=== PATIENT | male | born 1940 | race Caucasian/White ===

== ENCOUNTER 2017-07-25 02:23 | Day surgery (SDC) | payer MEDICARE ==
[~2017-07-25] VITALS: Ht 172.7 cm; Wt 77.3 kg
[~2017-07-25 02:23] MED LIST: Omeprazole20 M1 PO; TAMS.4ER PO
== END 2017-07-25 11:35 | disposition home or self-care (01) ==
LOC: MHTC 02:23
PROC: B2111ZZ Fluoroscopy of Multiple Coronary Arteries using Low Osmolar Contrast (ICD-10-PCS; principal; 2017-07-25)
DX: I35.0 Nonrheumatic aortic (valve) stenosis (principal); I25.10 Atherosclerotic heart disease of native coronary artery without angina pectoris; K21.9 Gastro-esophageal reflux disease without esophagitis; M17.9 Osteoarthritis of knee, unspecified; N40.0 Benign prostatic hyperplasia without lower urinary tract symptoms; Z88.8 Allergy status to other drugs, medicaments and biological substances; Z87.891 Personal history of nicotine dependence; Z79.899 Other long term (current) drug therapy
CPT/HCPCS: 93454; 99152; 99153; C1769; C1894; J1200; J1644; J1720; J2250; J3010; J7030; Q9967

== ENCOUNTER 2021-10-12 06:41 | Day surgery (SDC) | payer MEDICARE ==
[~2021-10-12] VITALS: Ht 170.2 cm; Wt 80.3 kg
[~2021-10-12 06:41] MED LIST changes: +ASCO500 PO; +ASPI81CH PO; +ATOR80 PO; +GLUCHON PO; +Lopressor 25 mg25 MG PO
--- NOTE | 2021-10-12 07:48 | NUR ---
PT STATES HE WAS NOT INFORMED TO DO 5 DAYS OF CHLORHEXIDINE SBOWERS OR MUPRIOCIN TO [facility]. DR. DELA CRUZ INFORMED.
--- NOTE | 2021-10-12 07:48 | NUR ---
PT ADMITTED TO [facility]. AGREES WITH PLANNED SURGERY. LUNG SOUNDS WITH RHONCHI. DR. BHAKTA INFOMRED. ORDERS GIVEN.
--- NOTE | 2021-10-12 11:39 | NUR ---
PT NOT MOVING FEET AT THIS TIME EARLIER I THOUGHT I HAD SEEN RIGHT FOOT MOVE BUT AT THIS TIME IT IS NOT
--- NOTE | 2021-10-12 12:15 | NUR ---
PT ARRIVED TO THE ROOM AT 1203. PT IS ALERT ORIENTED AND PLEASANT. PT DENIES PAIN. PT HAD SPINAL ANESTHESIA, CURRENTLY NO FEELING OR MOVEMENT TO BLE. PT DENIES NAUSEA. WILL CONTINUE TO MONITOR.
--- NOTE | 2021-10-12 12:57 | NUR ---
PT ARRIVED ON SURG FLOOR AT 1205 FOR L TOTAL KNEE ARTHROPLASTY. PT IS A&OX4. PT IS STILL FEELING AFFECTS OF SPINAL ANESTHESIA AND IS UNABLE TO WIGGLE TOES OR FEEL SENSATION ON FEET. PEDAL PULSES FELT WITH PALPATION. EXTREMITES WARM. L KNEE SURGIAL SITE SHOWS NO SWELLING OR REDNESS. NO SHADOWING PRESENT ON DRESSING. AQUECELL DRESSING WITH WILFREDO WRAP. POLAR PACK IN PLACE ON L KNEE. CALL PT EDUCATED ON THE USE OF INCENTIVE SPIROMETER AND CALL LIGHT. WILL CONTINUE TO MONITOR.
--- NOTE | 2021-10-12 14:39 | NUR ---
DURING PT ROUNDING, PT IS ABLE TO WIGGLE FEET. STILL UNABLE TO FEEL SENSATION IN FEET BUT HAS GAINED SENSATION AT KNEES AND UP.
--- NOTE | 2021-10-12 17:19 | NUR ---
SHIFT SUMMARY PT IS A&OX4. PT IS POD#0 FOR L TOTAL KNEE ARTHROPLASTY. PT HAD SPINAL ANESTHESIA AND REGAINED SENSATION IN FEET AT ABOUT 1630. PT HAS POLAR PACK IN PLACE. AQUACELL DRESSING IN PLACE WITH NO SHADOWING NOTED. PT HAS NOT YET VOIDED OF THIS REPORT BUT ENCOURAGED TO USE URINAL AND CALL LIGHT IF HE VOIDS. PT STATED HE FELT "WOOZY" DURING THE AFTERNOON BUT WHEN I ROUNDED ON HIM AT 1730 HE STATED HE FELT MUCH BETTER. PT TOLERATED REGULAR DIET WELL.
--- NOTE | 2021-10-12 19:44 | NUR ---
SHIFT SUMMARY PT IS POD#0 FROM L TKA WITH DR. DELA CRUZ. PT HAD SPINAL ANESTHESIA, HIS BLE REMAINED NUMB/WEAK UNTIL APPROXIMATELY 1630. PT ATTEMPTED TO WORK WITH THERAPY BUT WAS A MODERATE ASSIST TO STAND. PT DENIES PAIN. TOLERATING PO BUT REPORTS MILD NAUSEA. PT HAS BEEN UNABLE TO VOID SINCE SURGERY, BLADDER SCAN SHOWED 174ML THIS EVENING, WILL CONTINUE TO MONITOR. REPORT GIVEN TO TOPHER ROWE.
--- NOTE | 2021-10-13 04:18 | NUR ---
SHIFT SUMMARY POD 1 L TKA. WILFREDO WRAP REMAINS CDI WITH POLAR PACK IN PLACE. PT CONT TO DENY PAIN, BUT STILL TAKING TYLENOL + TORADOL SCHEDULED. 1 ASSIST WITH GB + FWW. PT ANTICIPATING TO GO HOME TODAY AFTER THERAPY. USES CALL LIGHT APPROPRIATELY.
[2021-10-13 05:32] LABS: BASOPHILS ABSOLUTE AUTO 0.02 K/mm3 (0.00-0.23); BASOPHILS PERCENT AUTO 0 % (0-2); EOSINOPHILS PERCENT AUTO 0 % (0-6); Hematocrit 36.1 % (37.0-53.0); Hemoglobin 12.3 g/dL (13.5-17.5); IMMATURE GRAN ABSOLUTE AUTO 0.06 K/mm3 (0.00-0.10); IMMATURE GRAN PERCENT AUTO 0 % (0-1); LYMPHOCYTES ABSOLUTE AUTO 1.25 K/mm3 (0.84-5.20); LYMPHOCYTES PERCENT AUTO 7 % (21-46); MONOCYTES ABSOLUTE AUTO 1.25 K/mm3 (0.16-1.47); MONOCYTES PERCENT AUTO 7 % (4-13); Mean Corpuscular HGB Conc 34.1 g/dL (31.5-36.5); Mean Corpuscular Volume 97 fL (80-100); Mean Platelet Volume 10.7 fL (9.1-12.4); NEUTROPHILS ABSOLUTE AUTO 15.33 K/mm3 (1.96-9.15); NEUTROPHILS PERCENT AUTO 86 % (41-73); Platelet Count 214 K/mm3 (150-400); RDW Standard Deviation 46.3 fL (35.1-46.3); Red Blood Cell Count 3.73 M/mm3 (4.30-5.90); White Blood Cell Count 17.91 K/mm3 (4.00-11.30)
[2021-10-13 05:52] LABS: Anion Gap 5 mmol/L (6-16); Blood Urea Nitrogen 23 mg/dL (8-24); Bun/Creatinine Ratio 24.6 (12.0-20.0); CO2, Blood 25 mmol/L (21-32); Calcium, Blood 9.2 mg/dL (8.5-10.1); Chloride, Blood 112 mmol/L (98-108); Creatinine, Blood 0.93 mg/dL (0.60-1.20); Glomerular Filtration Rate >60 (60-); Glucose, Blood 130 mg/dL (70-99); Potassium, Blood 4.2 mmol/L (3.5-5.5); Sodium, Blood 142 mmol/L (136-145)
[2021-10-13] MEDS ORDERED: Percocet 5-3251 EACH PO (09:44)
--- NOTE | 2021-10-13 11:38 | NUR ---
DISCHARGE SUMMARY PT POD #1 FOR L KNEE ARTHROPLASTY. PT DENIED PAIN AT THE TIMES OF DISCHARGE. AQUACEL AND WILFREDO WRAP DRESSING TO L KNEE CDI. POLAR PACK IN PLACE. PT CLEARED WORKING WITH PHYSICAL THERAPY. PT DC'D HOME.
== END 2021-10-13 11:13 | disposition home or self-care (01) ==
LOC: ORSCMMR 06:41 → ORD 08:15 → SURS 12:01 → ORSCMMR 10-13 11:13
PROVIDERS: Orthopaedic Surgery
PROC: 0SRD06A Replacement of Left Knee Joint with Oxidized Zirconium on Polyethylene Synthetic Substitute, Uncemented, Open Approach (ICD-10-PCS; principal; 2021-10-13)
DX: M17.12 Unilateral primary osteoarthritis, left knee (principal); M92.522 Juvenile osteochondrosis of tibia tubercle, left leg; I35.0 Nonrheumatic aortic (valve) stenosis; K31.9 Disease of stomach and duodenum, unspecified; E78.5 Hyperlipidemia, unspecified; I10 Essential (primary) hypertension; I25.10 Atherosclerotic heart disease of native coronary artery without angina pectoris; Z87.891 Personal history of nicotine dependence; Z79.82 Long term (current) use of aspirin; Z79.899 Other long term (current) drug therapy
CPT/HCPCS: 36415; 73560-LT; 80048; 85025; 97110; 97116; 97161; 97530; A9270; C1776; J0171; J0690; J0735; J1100; J1885; J2370; J2405; J2704; J2795; J3010; J3370; J7050; J7060; J7120